=== PATIENT | female | born 1990 | race American Indian/Alaskan Native ===

== ENCOUNTER 2020-05-07 14:48 | Outpatient (CLI) | payer OTHER ==
[2020-05-07 15:18] VITALS: BP 108/55
[2020-05-07] MEDS ORDERED: LACTATED RINGERS 1,000 ML IV SCH (16:00)
[2020-05-07] MEDS ORDERED: LACTATED RINGERS 1000 ML IV SOLN ONE (16:00)
[2020-05-07 16:26] LABS: Bilirubin,Urine NEG (Negative); Blood,Urine NEG (Negative); Color,Urine Yellow (Yellow); Mucus,Urine FEW /HPF; Protein,Urine <15 mg/dL mg/dL (Negative); Urobilinogen,Urine < 2.0 mg/dL (<2.0)
== END 2020-05-07 23:20 | disposition home or self-care (01) ==
LOC: TRG 14:48 → APU 14:49 → TRG 23:20
PROVIDERS: ATTEND Obstetrics & Gynecology
DX: O26.893 Other specified pregnancy related conditions, third trimester (principal); R10.30 Lower abdominal pain, unspecified; R25.2 Cramp and spasm; O47.03 False labor before 37 completed weeks of gestation, third trimester; O99.353 Diseases of the nervous system complicating pregnancy, third trimester; G43.909 Migraine, unspecified, not intractable, without status migrainosus; O99.343 Other mental disorders complicating pregnancy, third trimester; F41.9 Anxiety disorder, unspecified; F32.9 Major depressive disorder, single episode, unspecified; O99.333 Smoking (tobacco) complicating pregnancy, third trimester; F17.200 Nicotine dependence, unspecified, uncomplicated; Z3A.35 35 weeks gestation of pregnancy
CPT/HCPCS: 59025; 81001; 96360; 96361; J7120

== ENCOUNTER 2020-05-26 20:40 | Inpatient (IN) | payer OTHER ==
[2020-05-26 22:29] LABS: Basophils % (Auto) 0.2 % (0.0-1.8); Eosinophils % (Auto) 0.3 % (0.0-4.3); Hematocrit 38.9 % (30.3-42.9); Hemoglobin 13.6 gm/dl (10.1-14.3); Lymphocytes % (Auto) 18.6 % (13.4-35.0); Mean Corpuscular HGB Conc 35 % (30-34); Mean Corpuscular Volume 97 fl (79-97); Monocytes # (Auto) 0.5 K/mm3 (0.0-0.8); Monocytes % (Auto) 4.9 % (0.0-7.3); Platelet Count 144 K/mm3 (140-440); Red Cell Distribution Width 13.8 % (13.2-15.2)
[2020-05-26] MEDS ORDERED: fentaNYL 100 MCG/2 ML INJ IV PRN (22:50)
[2020-05-26] MEDS ORDERED: MINERAL OIL 30 ML ORAL LIQD PO PRN (22:50)
[2020-05-26] MEDS ORDERED: ePHEDrine SULFATE 50 MG/1 ML INJ IV PRN (22:50)
[2020-05-26] MEDS ORDERED: LIDOCAINE (2%) 20 MG/1 ML VIAL 20 ML MDV INFILTRATI ONE (22:50)
[2020-05-26] MEDS ORDERED: ACETAMINOPHEN 325 MG TAB PO PRN (22:50)
[2020-05-26] MEDS ORDERED: AMPICILLIN/NS 2 GM/100 ML 2 GM/100 ML BAG IV ONE (22:54)
[2020-05-26] MEDS ORDERED: ZOLPIDEM 5 MG TAB PO PRN (22:56)
[2020-05-26] MEDS ORDERED: LACTATED RINGERS 1,000 ML IV SCH (23:00)
[2020-05-26] MEDS ORDERED: OXYTOCIN 20 UNIT/1000ML DRIP 20 UNITS/1,000 ML BAG IV SCH (23:00)
[2020-05-26] MEDS ORDERED: DINOPROSTONE 10 MG VAG SUPP VG ONE (23:15)
[2020-05-26] MEDS: NICOTINE 14 MG/24 HR PATCH TD SCH (23:22)
[2020-05-27] MEDS: AMPICILLIN/NS 1 GM/50 ML 1 GM/50 ML BAG IV SCH ×4 (05:03→18:34)
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
[2020-05-27] MEDS ORDERED: ACETAMINOPHEN 500 MG TAB PO PRN (08:00)
--- NOTE | 2020-05-27 13:34 | Event Note ---
Date: 05/27/20 Cervidil removed, SVE 10/17/3. Cook catheter placed, each balloon inflated with 60cc sterile water. Pt tolerated well. Frequent contractions. Initiate low dose Pitocin.
[2020-05-27] MEDS ORDERED: OXYTOCIN DRIP 30 UNITS/500 ML BAG IV SCH (14:00)
[2020-05-27] MEDS: BUTORPHANOL 2 MG/1 ML INJ IV PRN ×3 (15:00→21:04)
[2020-05-27] MEDS: NICOTINE 14 MG/24 HR PATCH TD SCH (21:11)
--- NOTE | 2020-05-27 22:25 | Anesthesia Consultation ---
Anesthesia Consult and Med Hx Date of service: 05/27/20 - Airway Anesthetic Teeth Evaluation: Good ROM Head & Neck: Adequate Mental/Hyoid Distance: Adequate Mallampati Class: Class II Intubation Access Assessment: Probably Good - Pulmonary Exam CTA: Yes - Cardiac Exam Cardiac Exam: RRR - Pre-Operative Health Status ASA Pre-Surgery Classification: ASA2 Proposed Anesthetic Plan: Epidural - Pulmonary Hx Asthma: No - Cardiovascular System Hx Hypertension: No - Central Nervous System Hx Seizures: No Hx Psychiatric Problems: Yes (anxiety, major depressive disorder) - Gastrointestinal Hx Gastroesophageal Reflux Disease: Yes - Endocrine Hx Renal Disease: No Hx Non-Insulin Dependent Diabetes: Yes Hx Hypothyroidism: No Hx Hyperthyroidism: No - Hematic Hx Anemia: No Hx Sickle Cell Disease: No - Other Systems Hx Alcohol Use: Yes (wine during ) - Additional Comments Anesthesia Medical History Comments: Gestational thrombocytopenia
[2020-05-27] MEDS ORDERED: NALOXONE 2 MG/2 ML INJ IV PRN (22:27)
[2020-05-27] MEDS ORDERED: ePHEDrine SULFATE 50 MG/1 ML INJ IV PRN (22:27)
[2020-05-27] MEDS ORDERED: DEXMEDETOMIDINE 200 MCG/2 ML VIAL IV ONE (22:38)
--- NOTE | 2020-05-27 22:54 | Progress Note ---
Labor Epidural - Labor Epidural Start Time: 22:37 Stop Time: 22:40 Performed by:: DALTON MORAES Procedure: Patient is requesting epidural for labor pain. H&P, and labs reviewed. Procedure explained, questions answered, consent obtained. Patient in sitting position with blood pressure cuff and pulse ox on and working. Timeout performed immediately before start of procedure. Sterile betadine prep/drape. 3 mL 1% lidocaine skin wheal at L[3]-L[4]. 18-gauge Touhy epidural needle advanced to [id number] with saline at 8 cm. 27-gauge spinal needle advanced until clear, free-flowing CSF. Intrathecal dexmedetomidine [5] mcg administered and needle removed. Free flowing csf noted from epidural needle. Epidural catheter advanced to [12] cm, negative aspiration for blood, positive for csf. Sterile steri-strips and tegaderm applied, followed by tape reinforcement. Patient tolerated procedure well. Ludin [place]
[2020-05-27] MEDS ORDERED: fentaNYL-BUPIV 2 MCG/ML-0.125% 200 MCG/100 ML BAG EPIDURAL SCH (23:00)
[2020-05-28] MEDS: AMPICILLIN/NS 1 GM/50 ML 1 GM/50 ML BAG IV SCH ×3 (02:13→12:31)
--- NOTE | 2020-05-28 07:37 | Progress Note ---
Assessment and Plan A: 30 yo at 39w3d EGA Gestational diabetes, lifestyle controlled HSV-2 seropositive, on Valtrex suppression, no current lesion or prodrome GBS positive Membranes ruptured x10 hours P: Continue IOL- Pitocin BG q4hr in latent labor, q1hr in active labor Ampicillin prophylaxis Anticipate Subjective - Subjective Date of service: 05/28/20 Principal diagnosis: Gestational diabetes, IUP at term Interval history: HD2 of IOL for gestational diabetes. She is s/p Cervidil, Cook Catheter which fell out at 2100 last night, SROM at 2100, and now Pitocin. She is comfortable with an epidural. Patient reports: loss of fluid, movement normal, contractions, no new complaints Objective - Vital Signs Vital Signs: Vital Signs - 12hr 05/27/20 05/27/20 05/27/20 21:13 21:49 22:31 Pulse Rate 67 71 68 Blood Pressure 126/65 115/55 O2 Sat by Pulse 97 Oximetry 05/27/20 05/27/20 05/27/20 22:36 22:38 22:41 Pulse Rate 67 61 94 H Blood Pressure 126/74 O2 Sat by Pulse 97 95 Oximetry 05/27/20 05/27/20 05/27/20 22:46 22:47 22:56 Pulse Rate 70 63 78 Blood Pressure 157/62 O2 Sat by Pulse 97 98 Oximetry 05/27/20 05/27/20 05/27/20 23:01 23:06 23:08 Pulse Rate 83 77 79 Blood Pressure 109/53 111/57 O2 Sat by Pulse 98 95 94 Oximetry 05/27/20 05/27/20 05/27/20 23:11 23:14 23:16 Pulse Rate 72 82 76 Blood Pressure 108/52 109/59 O2 Sat by Pulse 95 94 92 Oximetry 05/27/20 05/27/20 05/27/20 23:17 23:20 23:21 Pulse Rate 75 81 68 Blood Pressure 105/54 O2 Sat by Pulse 94 95 Oximetry 05/27/20 05/27/20 05/27/20 23:26 23:31 23:32 Pulse Rate 73 79 71 Blood Pressure 104/56 O2 Sat by Pulse 94 96 Oximetry 05/27/20 05/27/20 05/27/20 23:33 23:36 23:41 Pulse Rate 79 70 66 Blood Pressure O2 Sat by Pulse 94 97 97 Oximetry 05/27/20 05/27/20 05/27/20 23:43 23:46 23:49 Pulse Rate 75 66 64 Blood Pressure 104/68 O2 Sat by Pulse 94 96 Oximetry 05/27/20 05/27/20 05/28/20 23:51 23:56 00:01 Pulse Rate 66 72 81 Blood Pressure O2 Sat by Pulse 97 97 100 Oximetry 05/28/20 05/28/20 05/28/20 00:06 00:11 00:16 Pulse Rate 67 70 65 Blood Pressure O2 Sat by Pulse 100 99 100 Oximetry 05/28/20 05/28/20 05/28/20 00:20 00:21 00:26 Pulse Rate 78 82 69 Blood Pressure 87/49 O2 Sat by Pulse 92 99 99 Oximetry 05/28/20 05/28/20 05/28/20 00:27 00:31 00:32 Pulse Rate 74 83 75 Blood Pressure 91/51 87/54 O2 Sat by Pulse 92 98 89 Oximetry 05/28/20 05/28/20 05/28/20 00:35 00:36 00:40 Pulse Rate 79 92 H 81 Blood Pressure 87/51 106/57 O2 Sat by Pulse 98 Oximetry 05/28/20 05/28/20 05/28/20 00:41 00:46 00:51 Pulse Rate 79 82 74 Blood Pressure O2 Sat by Pulse 99 100 100 Oximetry 05/28/20 05/28/20 05/28/20 00:56 00:58 01:01 Pulse Rate 87 86 81 Blood Pressure 99/53 O2 Sat by Pulse 99 90 99 Oximetry 05/28/20 05/28/20 05/28/20 01:06 01:11 01:16 Pulse Rate 81 71 85 Blood Pressure O2 Sat by Pulse 99 99 100 Oximetry 05/28/20 05/28/20 05/28/20 01:21 01:26 01:31 Pulse Rate 82 92 H 91 H Blood Pressure 106/55 O2 Sat by Pulse 100 98 99 Oximetry 05/28/20 05/28/20 05/28/20 01:36 01:41 01:46 Pulse Rate 85 86 112 H Blood Pressure 91/54 O2 Sat by Pulse 100 99 99 Oximetry 05/28/20 05/28/20 05/28/20 01:51 01:55 01:56 Pulse Rate 95 H 99 H 95 H Blood Pressure 91/55 O2 Sat by Pulse 99 98 Oximetry 05/28/20 05/28/20 05/28/20 02:01 02:06 02:08 Pulse Rate 94 H 122 H 121 H Blood Pressure 126/65 O2 Sat by Pulse 99 97 Oximetry 05/28/20 05/28/20 05/28/20 02:11 02:16 02:21 Pulse Rate 113 H 110 H 113 H Blood Pressure 139/66 O2 Sat by Pulse 98 98 99 Oximetry 05/28/20 05/28/20 05/28/20 02:26 02:31 02:36 Pulse Rate 109 H 102 H 111 H Blood Pressure 102/55 O2 Sat by Pulse 99 96 96 Oximetry 05/28/20 05/28/20 05/28/20 02:40 02:41 02:46 Pulse Rate 110 H 105 H 105 H Blood Pressure 97/51 O2 Sat by Pulse 97 97 Oximetry 05/28/20 05/28/20 05/28/20 02:51 02:56 02:57 Pulse Rate 103 H 98 H 104 H Blood Pressure 106/56 O2 Sat by Pulse 100 99 89 Oximetry 05/28/20 05/28/20 05/28/20 03:01 03:06 03:11 Pulse Rate 107 H 101 H 96 H Blood Pressure 98/53 O2 Sat by Pulse 99 99 99 Oximetry 05/28/20 05/28/20 05/28/20 03:16 03:21 03:25 Pulse Rate 122 H 103 H 100 H Blood Pressure 107/55 O2 Sat by Pulse 96 96 Oximetry 05/28/20 05/28/20 05/28/20 03:26 03:31 03:33 Pulse Rate 101 H 92 H 99 H Blood Pressure O2 Sat by Pulse 95 97 94 Oximetry 05/28/20 05/28/20 05/28/20 03:36 03:40 03:41 Pulse Rate 94 H 83 80 Blood Pressure 104/57 O2 Sat by Pulse 96 95 Oximetry 05/28/20 05/28/20 05/28/20 03:46 03:51 03:53 Pulse Rate 83 89 85 Blood Pressure O2 Sat by Pulse 94 95 94 Oximetry 05/28/20 05/28/20 05/28/20 03:55 03:56 03:58 Pulse Rate 83 81 80 Blood Pressure 106/57 O2 Sat by Pulse 94 94 Oximetry 05/28/20 05/28/20 05/28/20 04:01 04:06 04:07 Pulse Rate 80 84 84 Blood Pressure O2 Sat by Pulse 94 95 94 Oximetry 05/28/20 05/28/20 05/28/20 04:10 04:11 04:14 Pulse Rate 79 80 81 Blood Pressure 103/53 O2 Sat by Pulse 94 94 Oximetry 05/28/20 05/28/20 05/28/20 04:16 04:19 04:21 Pulse Rate 76 78 80 Blood Pressure O2 Sat by Pulse 94 94 93 Oximetry 05/28/20 05/28/20 05/28/20 04:25 04:26 04:27 Pulse Rate 75 88 90 Blood Pressure 102/56 O2 Sat by Pulse 93 94 Oximetry 05/28/20 05/28/20 05/28/20 04:31 04:36 04:38 Pulse Rate 80 81 77 Blood Pressure O2 Sat by Pulse 94 94 94 Oximetry 05/28/20 05/28/20 05/28/20 04:40 04:41 04:43 Pulse Rate 77 78 99 H Blood Pressure 107/58 O2 Sat by Pulse 96 94 Oximetry 05/28/20 05/28/20 05/28/20 04:46 04:49 04:51 Pulse Rate 84 83 92 H Blood Pressure O2 Sat by Pulse 97 94 96 Oximetry 05/28/20 05/28/20 05/28/20 04:55 04:56 05:01 Pulse Rate 80 80 81 Blood Pressure 106/57 O2 Sat by Pulse 96 96 Oximetry 05/28/20 05/28/20 05/28/20 05:06 05:11 05:12 Pulse Rate 93 H 79 84 Blood Pressure 108/61 O2 Sat by Pulse 97 96 92 Oximetry 05/28/20 05/28/20 05/28/20 05:16 05:19 05:21 Pulse Rate 80 78 84 Blood Pressure O2 Sat by Pulse 95 94 94 Oximetry 05/28/20 05/28/20 05/28/20 05:25 05:26 05:31 Pulse Rate 85 74 77 Blood Pressure 104/58 O2 Sat by Pulse 94 97 97 Oximetry 05/28/20 05/28/20 05/28/20 05:36 05:39 05:41 Pulse Rate 77 78 79 Blood Pressure 112/54 O2 Sat by Pulse 95 94 95 Oximetry 05/28/20 05/28/20 05/28/20 05:46 05:47 05:51 Pulse Rate 75 84 79 Blood Pressure O2 Sat by Pulse 96 94 95 Oximetry 05/28/20 05/28/20 05/28/20 05:56 06:01 06:06 Pulse Rate 79 78 84 Blood Pressure 115/65 O2 Sat by Pulse 96 98 97 Oximetry 05/28/20 05/28/20 05/28/20 06:10 06:11 06:16 Pulse Rate 90 82 83 Blood Pressure 112/64 O2 Sat by Pulse 96 98 Oximetry 05/28/20 05/28/20 05/28/20 06:21 06:26 06:31 Pulse Rate 87 81 85 Blood Pressure 106/59 O2 Sat by Pulse 96 96 96 Oximetry 05/28/20 05/28/20 05/28/20 06:36 06:40 06:41 Pulse Rate 84 77 81 Blood Pressure 108/56 O2 Sat by Pulse 96 95 Oximetry 05/28/20 05/28/20 05/28/20 06:46 06:51 06:55 Pulse Rate 81 85 82 Blood Pressure 106/58 O2 Sat by Pulse 96 96 Oximetry 05/28/20 05/28/20 05/28/20 06:56 07:01 07:06 Pulse Rate 79 83 84 Blood Pressure O2 Sat by Pulse 94 94 97 Oximetry 05/28/20 05/28/20 05/28/20 07:10 07:11 07:16 Pulse Rate 84 84 86 Blood Pressure 110/56 O2 Sat by Pulse 95 96 Oximetry 05/28/20 05/28/20 05/28/20 07:21 07:25 07:26 Pulse Rate 87 100 H 99 H Blood Pressure 113/66 O2 Sat by Pulse 97 96 Oximetry 05/28/20 07:31 Pulse Rate 98 H Blood Pressure O2 Sat by Pulse 96 Oximetry - Exam Lungs: Normal air movement Abdomen: Present: soft FHR: category 1 Cervical Dilatation: 5.5 (per RN) Uterine Tone Measurement Phase: Contraction Uterine Contraction Intensity: Moderate - Labs Labs: Abnormal Labs 05/26/20 05/27/20 05/27/20 21:30 08:33 20:02 MCH 34 H MCHC 35 H Seg Neutrophils % 76.0 H Seg Neutrophils # 8.3 H POC Glucose 138 H 66 L Laboratory Results - last 24 hr 05/27/20 05/27/20 05/27/20 08:33 12:26 20:02 POC Glucose 138 H 78 66 L Coronavirus (PCR) 05/27/20 05/28/20 Unknown 06:12 POC Glucose 79 Coronavirus (PCR) Negative
[2020-05-28] MEDS ORDERED: ONDANSETRON 4 MG/2 ML INJ ONE (07:41)
--- NOTE | 2020-05-28 13:12 | Event Note ---
Date: 05/28/20 Occasional late decelerations noted, resolved with decrease in Pitocin and O2. SVE /-1. Continue IOL, closely monitor clinical status.
[2020-05-28] MEDS ORDERED: METHYLERGONOVINE MALEATE 0.2 MG/ML VIAL IM ONE (17:34)
--- NOTE | 2020-05-28 17:52 | Procedure Note ---
OB Delivery Note - Delivery Date of Delivery: 05/28/20 Surgeon: TAYLOR HOU ([facility]) Estimated blood loss: other (400cc) - Vaginal Delivery presentation: vertex Delivery position: OA Intrapartum events: PROM->1hr before delivery, mult.variable deceleratio Delivery induction: other (Cook catheter) Delivery augmentation: pitocin Delivery monitor: external FHT, external uterine Route of delivery: Delivery placenta: spontaneous Delivery cord: 3 umbilical vessels Episiotomy: none Delivery laceration: none Anesthesia: epidural Delivery comments: Excellent maternal effort progressed to of viable female . Head delivered OA, restituted LOT, shoulders followed easily. to maternal abdomen, vigorous, Apgars 9/9. Delayed cord clamping. Cut by FOB. Placenta delivered spontaneously and intact, 3VC. Brisk bleeding resolved noted, administered IV Pitocin, 0.2mg Methergine IM, and straight cath with resolution in bleeding. EBL 400cc. No lacerations noted. Mother and infant bonding well. 6lb 8oz. - A at 1 minute: 9 at 5 minutes: 9 Infant Gender: Female
[2020-05-28] MEDS ORDERED: PROMETHAZINE 25 MG RECT SUPP PR PRN (17:53)
[2020-05-28] MEDS ORDERED: ONDANSETRON 4 MG/2 ML INJ IV PRN (17:53)
[2020-05-28] MEDS ORDERED: LANOLIN/ZINC/DIMETHICONE (LANSINOH) 7 GM TP PRN (17:53)
[2020-05-28] MEDS ORDERED: WITCH HAZEL/ GLYCERIN PAD TP PRN (17:53)
[2020-05-28] MEDS ORDERED: diphenhydrAMINE 25 MG CAP PO PRN (17:53)
[2020-05-28] MEDS ORDERED: PROMETHAZINE 25 MG TAB PO PRN (17:53)
[2020-05-28] MEDS ORDERED: MAGNESIUM HYDROXIDE (MOM) ORAL LIQD UDC PO PRN (17:53)
[2020-05-28] MEDS ORDERED: oxyCODONE /ACETAMINOPHEN 5-325MG TAB PO ONE (19:28)
[2020-05-28] MEDS: IBUPROFEN 600 MG TAB PO SCH (22:17)
[2020-05-29] MEDS: IBUPROFEN 600 MG TAB PO SCH ×3 (02:59→20:31)
[2020-05-29 06:23] LABS: Hematocrit 30.2 % (30.3-42.9); Hemoglobin 10.4 gm/dl (10.1-14.3)
[2020-05-29] MEDS: ACETAMINOPHEN 325 MG TAB PO PRN ×2 (06:40→11:44)
--- NOTE | 2020-05-29 08:09 | Progress Note ---
Assessment and Plan - Patient Problems (1) Headache Current Visit: Yes Status: Acute Plan to address problem: will have patient evaluated by anesthesia to rule out spinal headache Subjective - Subjective Date of service: 05/29/20 Principal diagnosis: Gestational diabetes, IUP at term Interval history: The patient complains of having a consistent headache. She states from receiving Motrin and Tylenol without significant improvement in her symptoms. Patient reports: appetite normal, voiding normally Objective - Vital Signs Latest vital signs: Vital Signs Temp Pulse Resp BP BP Pulse Ox 05/29/20 06:40 18 05/29/20 04:00 98.6 F 74 16 114/68 05/29/20 03:59 18 05/29/20 02:59 18 05/28/20 23:17 18 05/28/20 22:17 18 05/28/20 20:03 99.2 F 102 H 18 133/77 96 05/28/20 19:17 102 H 127/63 05/28/20 19:15 99.4 F 102 H 18 127/63 05/28/20 18:37 102 H 147/78 05/28/20 18:27 131/66 05/28/20 18:17 106 H 128/70 05/28/20 18:07 109 H 134/79 05/28/20 17:41 103 H 97 05/28/20 17:36 93 H 97 05/28/20 17:31 124 H 97 05/28/20 17:26 107 H 97 05/28/20 17:21 133 H 95 05/28/20 17:16 129 H 99 05/28/20 17:11 98 H 96 05/28/20 17:06 85 97 05/28/20 17:01 89 96 05/28/20 17:00 100.1 F H 05/28/20 16:56 87 97 05/28/20 16:51 85 97 05/28/20 16:46 83 93 05/28/20 16:43 101 H 94 05/28/20 16:41 87 98 05/28/20 16:36 109 H 97 05/28/20 16:31 73 97 05/28/20 16:26 97 H 96 05/28/20 16:25 95 H 93 05/28/20 16:21 96 H 97 05/28/20 16:16 107 H 96 05/28/20 16:13 102 H 92 09/10/20 16:11 94 H 95 05/28/20 16:06 100 H 97 05/28/20 16:01 100 H 98 05/28/20 15:58 92 H 92 05/28/20 15:56 108 H 98 05/28/20 15:51 102 H 97 05/28/20 15:47 76 93 05/28/20 15:46 111 H 97 05/28/20 15:41 97 H 99 05/28/20 15:36 93 H 98 05/28/20 15:31 94 H 100 05/28/20 15:26 94 H 100 05/28/20 15:21 99 H 100 05/28/20 15:16 104 H 100 05/28/20 15:11 86 99 05/28/20 15:06 107 H 99 05/28/20 15:01 103 H 98 05/28/20 14:56 98 H 100 05/28/20 14:51 95 H 99 05/28/20 14:46 92 H 99 05/28/20 14:41 104 H 100 05/28/20 14:36 92 H 100 05/28/20 14:31 96 H 100 05/28/20 14:26 92 H 99 05/28/20 14:21 89 100 05/28/20 14:16 92 H 99 05/28/20 14:11 94 H 100 05/28/20 14:06 86 100 05/28/20 14:03 97.8 F 05/28/20 14:01 109 H 100 05/28/20 13:56 88 100 05/28/20 13:55 93 H 121/65 05/28/20 13:51 96 H 99 05/28/20 13:46 86 98 05/28/20 13:41 89 100 05/28/20 13:36 90 100 05/28/20 13:31 86 98 05/28/20 13:26 89 99 05/28/20 13:25 87 124/62 92 05/28/20 13:21 90 99 05/28/20 13:16 86 99 05/28/20 13:11 89 99 05/28/20 13:06 90 98 05/28/20 13:01 91 H 98 05/28/20 12:58 90 119/65 91 05/28/20 12:56 84 100 05/28/20 12:51 86 98 05/28/20 12:46 85 99 05/28/20 12:41 117 H 99 05/28/20 12:36 86 100 05/28/20 12:31 94 H 95 05/28/20 12:26 83 97 05/28/20 12:25 86 128/62 93 05/28/20 12:21 87 95 05/28/20 12:16 76 100 05/28/20 12:11 77 100 05/28/20 12:06 82 100 05/28/20 12:01 80 100 05/28/20 12:00 97.8 F 05/28/20 11:56 78 128/68 100 05/28/20 11:51 83 100 05/28/20 11:46 71 100 05/28/20 11:41 81 100 05/28/20 11:36 73 100 05/28/20 11:31 78 100 05/28/20 11:26 73 116/64 100 05/28/20 11:21 74 100 05/28/20 11:16 72 100 05/28/20 11:11 79 100 05/28/20 11:06 75 100 05/28/20 11:01 76 100 05/28/20 10:57 74 113/62 05/28/20 10:56 72 98 05/28/20 10:51 77 100 05/28/20 10:46 86 100 05/28/20 10:41 88 96 05/28/20 10:36 80 97 05/28/20 10:31 92 H 97 05/28/20 10:26 97 H 99 05/28/20 10:25 102 H 132/64 05/28/20 10:21 82 98 05/28/20 10:16 74 99 05/28/20 10:13 98.8 F 05/28/20 10:11 77 97 05/28/20 10:06 73 97 05/28/20 10:01 77 97 05/28/20 09:56 78 129/79 99 05/28/20 09:51 79 97 05/28/20 09:46 86 96 05/28/20 09:41 79 97 05/28/20 09:36 81 98 05/28/20 09:31 84 99 05/28/20 09:27 78 117/69 93 05/28/20 09:26 81 98 05/28/20 09:21 86 98 05/28/20 09:16 82 97 05/28/20 09:11 78 97 05/28/20 09:06 82 97 05/28/20 09:01 79 96 05/28/20 08:56 98 H 110/59 97 05/28/20 08:51 85 97 05/28/20 08:46 83 97 05/28/20 08:41 77 97 05/28/20 08:36 85 97 05/28/20 08:31 77 96 05/28/20 08:26 79 96 05/28/20 08:25 80 107/56 94 05/28/20 08:21 79 98 05/28/20 08:16 78 97 05/28/20 08:11 78 97 Intake and Output 05/28/20 05/29/20 05/29/20 22:59 06:59 14:59 Output Total 500 Balance -500 Output: Urine 500 Void 500 Other: Total, Output Amount 200 Estimated Blood Loss 400 - Exam Abdomen: Present: normal appearance, soft - Labs Labs: Abnormal lab results 05/28/20 05/29/20 Range/Units 22:34 05:12 Hct 30.2 L D (30.3-42.9) % POC Glucose 175 H (70-105)
[2020-05-29] MEDS ORDERED: BUTALB/ACETAMINOPHEN/CAFFEINE TAB PO PRN (12:30)
[2020-05-29] MEDS ORDERED: NEOSTIGMINE 2 MG, ATROPINE 1 MG in SODIUM CHLORIDE 0.9% 100 ML IV SCH (13:00)
[2020-05-29] MEDS ORDERED: tiZANidine TAB 4 MG TAB PO ONE (16:53)
--- NOTE | 2020-05-29 17:02 | Post Anesthesia Evaluation ---
- Post Anesthesia Evaluation Patient Participated: Yes Airway Patent: Yes Stable Respiratory Function: Yes Nausea/Vomiting: No Temp > 96.8F: Yes Pain Manageable: Yes Adequeate Hydration: Yes Anesthesia Complications: No Block Receding Appropriately: Yes (Pt c/o posterior neck stiffness, posterior headache that radiates to the front. Pain is worse with sitting, improved with standing or lying. Denies photophobia. One dose Neostigmine/Atropine and Fiorcet given with no improvement. Discussed with patient that this does not seem to be PDPH but rather caused by muscle stiffness. She requests "strong medicine that will knock her out". Ordered 1 dose zanaflex, and then scheduled skelaxin. Discussed with her use of massage and heat to help with symptoms. She states that she is worried that something is seriously wrong and I agreed it would be reasonable to perform a CT scan if symptoms do not improve with muscle relaxants.) Other Comments: States she is having sciatic pain down her L leg that is improving.
[2020-05-29] MEDS: METAXALONE 800 MG TAB PO SCH (20:16)
[2020-05-30] MEDS: IBUPROFEN 600 MG TAB PO SCH ×2 (02:42→10:10)
[2020-05-30] MEDS: METAXALONE 800 MG TAB PO SCH ×2 (03:59→12:23)
[2020-05-30] MEDS: ACETAMINOPHEN 325 MG TAB PO PRN (05:14)
--- NOTE | 2020-05-30 10:56 | Progress Note ---
Assessment and Plan - Patient Problems (1) Headache Current Visit: Yes Status: Acute Plan to address problem: will have anesthesia evaluate patient for potential blood patch Subjective - Subjective Date of service: 05/30/20 Principal diagnosis: Gestational diabetes, IUP at term Interval history: The patient reports mild improvement in symptoms. She states that her headache is dependent on her positioning. She denies any nausea vomiting Patient reports: appetite normal, voiding normally, pain poorly controlled : doing well Objective - Vital Signs Latest vital signs: Vital Signs Temp Pulse Resp BP BP Pulse Ox 05/30/20 08:21 97.9 F 18 115/55 05/30/20 06:14 18 05/30/20 05:14 18 05/30/20 03:42 18 05/30/20 02:42 18 05/30/20 00:30 98.8 F 70 18 115/79 05/29/20 21:31 18 05/29/20 21:29 98.0 F 84 18 117/47 96 05/29/20 20:31 18 05/29/20 16:28 97.9 F 77 20 113/57 96 05/29/20 11:47 98.3 F 79 20 103/66 98 Intake and Output 05/29/20 05/30/20 05/30/20 22:59 06:59 14:59 Intake Total 360 420 Balance 360 420 Intake: Oral 360 Intake, Free Water 420 Other: Total, Intake Amount 120 # Voids Void 1 1
--- NOTE | 2020-05-30 10:57 | Discharge Summary ---
Providers - Providers Date of Admission: 05/26/20 20:40 Date of discharge: 05/30/20 Attending physician: LYDIA BARBOSA Primary care physician: LYDIA BARBOSA Hospitalization Reason for admission: active labor Delivery: Discharge diagnosis: IUP at term delivered Hospital course: Patient was admitted for history of gestational diabetes underwent a uncomplicated vaginal delivery. Her course was complicated by persistent headache which the patient was evaluated by anesthesia Condition at discharge: Good Disposition: DC-01 TO HOME OR SELFCARE - Discharge Diagnoses (1) Headache Status: Acute Plan - Discharge Medications Prescriptions: Cyclobenzaprine [Flexeril] 10 mg PO TID PRN #15 tablet PRN Reason: Muscle Spasm Ibuprofen [Motrin] 800 mg PO Q8HR PRN #60 tablet PRN Reason: Pain , Severe (7-10) HYDROcodone/APAP 5-325 [Menan 5/325] 1 each PO Q6HR PRN #20 tablet PRN Reason: Pain - Provider Discharge Summary Activity: no sex for 6 weeks, no heavy lifting 4 weeks, no strenuous exercise Diet: routine Instructions: routine Additional instructions: [] Smoking cessation referral if applicable(refer to patient education folder for contact #) [] Refer to [facility] Booklet Call your doctor immediately for: * Fever > 100.5 * Heavy vaginal bleeding ( >1 pad per hour) * Severe persistent headache * Shortness of breath * Reddened, hot, painful area to leg or breast * Schedule visit in 4 weeks - Follow up plan
--- NOTE | 2020-05-30 11:36 | Progress Note ---
Subjective Date of service: 05/30/20 Principal diagnosis: Gestational diabetes, IUP at term Interval history: Patient re-evaluated today. States that sciatica symptoms completely resolved. Headache is improved with increased neck mobility at this time but not completely resolved. Patient agrees with plan to be discharged home with muscle relaxants, pain medication, and plan to return to ER for CT scan if headache does not improve in one week. Objective - Constitutional Vitals: Vital Signs - 12hr 05/30/20 05/30/20 05/30/20 00:30 02:42 03:42 Temperature 98.8 F Pulse Rate 70 Respiratory 18 18 18 Rate Blood Pressure Blood Pressure 115/79 [Right] 05/30/20 05/30/20 05/30/20 05:14 06:14 08:21 Temperature 97.9 F Pulse Rate Respiratory 18 18 18 Rate Blood Pressure 115/55 Blood Pressure [Right] - Labs CBC & Chem 7: 05/29/20 05:12
[2020-05-30 15:54] VITALS: BP 110/73
== END 2020-05-30 13:00 | disposition home or self-care (01) | DRG 774 ==
LOC: LD 20:40 → OB 05-28 20:04
PROVIDERS: ADMIT Obstetrics & Gynecology; ATTEND Obstetrics & Gynecology
PROC: 3E0P7VZ Introduction of Hormone into Female Reproductive, Via Natural or Artificial Opening (ICD-10-PCS; principal; 2020-05-27)
PROC: 3E0R3BZ Introduction of Anesthetic Agent into Spinal Canal, Percutaneous Approach (ICD-10-PCS; 2020-05-27)
PROC: 00HU33Z Insertion of Infusion Device into Spinal Canal, Percutaneous Approach (ICD-10-PCS; 2020-05-27)
PROC: 10E0XZZ Delivery of Products of Conception, External Approach (ICD-10-PCS; 2020-05-28)
DX: O24.420 Gestational diabetes mellitus in childbirth, diet controlled (principal); O90.89 Other complications of the puerperium, not elsewhere classified; O42.02 Full-term premature rupture of membranes, onset of labor within 24 hours of rupture; R51 Headache; O99.62 Diseases of the digestive system complicating childbirth; O99.824 Streptococcus B carrier state complicating childbirth; K21.9 Gastro-esophageal reflux disease without esophagitis; O99.344 Other mental disorders complicating childbirth; F32.9 Major depressive disorder, single episode, unspecified; F41.9 Anxiety disorder, unspecified; Z83.3 Family history of diabetes mellitus; Z82.49 Family history of ischemic heart disease and other diseases of the circulatory system; Z20.828 Contact with and (suspected) exposure to other viral communicable diseases; Z37.0 Single live birth; Z3A.39 39 weeks gestation of pregnancy; O99.12 Other diseases of the blood and blood-forming organs and certain disorders involving the immune mechanism complicating childbirth; D69.6 Thrombocytopenia, unspecified; O99.314 Alcohol use complicating childbirth; F10.99 Alcohol use, unspecified with unspecified alcohol-induced disorder; Y90.9 Presence of alcohol in blood, level not specified; O76 Abnormality in fetal heart rate and rhythm complicating labor and delivery; M54.32 Sciatica, left side
CPT/HCPCS: 36415; 82962; 85014; 85018; 85025; 86592; 86850; 86900; 86901; G0378; J0290; J0461; J0595; J2210; J2405; J2590; J2710; J3010; J3490; J7120; U0003-CS